=== PATIENT | male | born 1980 | race Caucasian/White ===

== ENCOUNTER 2021-06-23 08:16 | Outpatient (CLI) | payer OTHER ==
[2021-06-23 09:21] VITALS: BP 123/74
--- NOTE | 2021-06-23 09:21 | SLEEP CARE CONSULTATION ---
Information from patient questionnaire entered by Kayla Tate MA. I have reviewed and concur with the information entered by Kayla Tate MA. This document represents the service I personally performed and the decisions made by me, Magali Napoles ARNP. History of Present Illness Service Date and Time: 06/23/2021 0816 Reason for Visit: New patient (ONSET04/2012, NO PRIORS,) Chief Complaint: reports: Unrefreshed sleep (he feels awake but tired and not as much energy), Snoring (loud and irregular), Excessive daytime sleepiness, Fatigue, Frequent awakenings at night Date of Onset: 2 YEARS- 5 years Usual bedtime: 930 PM Time it takes to fall asleep: 15 MIN -1 HOUR Snores at night: Yes Observed to quit breathing while asleep: No Sleeps alone due to snoring: No Number of times waking at night: 2-3 Reasons for waking at night: reports: Snoring, Bathroom, Other (unknown reasons). denies: Choking, Gasping for air Toss, Turn, or Twitch while sleeping: Yes (some nights) Recalls having dreams: No (every now and then) Usually gets out of bed at: 0520 Feels refreshed in the morning: No Morning headache: Yes (1-2 a month) Sleepy or fatigued during the day: Yes (dozing off during day during movies or quiet moments) Ever fallen asleep while driving: No Takes day naps: No Dreams during day naps: No Prior sleep studies: No Additional HPI information: I had the pleasure of seeing GUY SMALL today regarding the possibility of him having a sleep disorder. His current complaints are excessive daytime sleepiness, fatigue, frequent night awakenings, snoring and unrefreshed sleep. He has been snoring for a long time but states in the last two years his daytime fatigue symptoms have been increasing. He has more times that he is falling asleep when watching TV with his . He will get drowsy after driving for an hour or more. He has woke himself up snoring, frequent bathroom trips and for unknowns reasons. 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 Patient is and lives in [place]. Have you smoked in the past 12 months: No Cigarettes per day (20/pack): 20 Years of smokin Quit date: 2008 Smoking Pack Years: 6.0 Alcohol use: Yes Alcohol amount and frequency: 1-2 X WEEKLY Caffeine use: Yes Caffeine amount and frequency: 1 X DAILY Family History Family history of sleep disordered breathing: Yes Family Hx Sleep Apnea: Father: Snoring, Grandparent: Snoring Allergies and Home Medications Known drug allergies: No Drug allergies reviewed: Yes Home medication list reviewed: Yes Allergy and home medication list: Omeprazole Review of Systems Weight gain over past 5 years: 20 pounds Cardiovascular: denies: high blood pressure Gastrointestinal: reports: heartburn Neurological: denies: headaches, head trauma Psychiatric: denies: anxiety, depression Ear/Nose/Throat: reports: injury to nose, wisdom teeth removed. denies: tonsillectomy Endocrine: denies: thyroid disease Immunologic: denies: allergies to food or environment Physical Exam Vital signs obtained and entered by: CHESTER HAND Blood Pressure: 123/74 (RIGHT, PULSE 67, RESP 14,) Cuff size: wrist Heart Rate: 72 O2 Saturation: 97 (N95) Height: 5 ft 5.5 in Weight: 197 lb Body Mass Index: 32.3 BMI Classification: Obese Neck circumference: 15 (INCHES) Mouth and throat: normal Soft palate: long Hard palate: normal Uvula: normal, long Uvula visualization: 100% Mallampati Class I Tongue: normal in size Tonsils: 1+ Neck: normal w/o lymphadenopathy or thyromegaly Heart: regular rate and rhythm Lungs: clear bilaterally Impression and Plan 1. Suspected Obstructive Sleep Apnea-Hypopnea Syndrome, as suggested by a history of loud and irregular snoring, morning headache, frequent awakening during the night, unrefreshed sleep, and excessive daytime sleepiness. Narrow oropharynx and obesity are common predisposing factors for obstructive sleep apnea-hypopnea syndrome. I recommend proceeding to polysomnography to confirm the diagnosis and to assess severity. If the patient has significant sleep disordered breathing, a manual CPAP titration study will also be performed to find the optimal treatment pressure. I informed the patient of what the sleep studies involve and after some discussion, obtained agreement to proceed. The pathophysiology of obstructive sleep apnea-hypopnea syndrome was discussed with the patient and health risks of cardiovascular and cerebrovascular disease if not treated. Risks of drowsy driving discussed in detail and patient advised to avoid long distance driving and to machine assembler for puller over at the first sign of drowsiness. Patient agreed to plan. * Schedule polysomnography +- manual CPAP titration study and return in 1-2 weeks after the study to discuss results. * Avoid long distance driving or driving when feeling sleepy. * Avoid alcohol, sedative and muscle relaxant around bedtime. * Attempt to lose weight. * Review instructions provided by trained office staff on how to prepare for the sleep study. * Return for follow-up after sleep study completed. Counseling Topics: Weight loss health impact Visit Type: In Office Time Spent with Patient (minutes): 31 Provider Statement: I spent 100% of the Face to Face Visit with the patient with greater than 50% spent counseling the patient and coordination of care.
== END 2021-06-23 08:17 | disposition home or self-care (01) ==
LOC: SC 08:16
PROVIDERS: ATTEND Nurse Practitioner Family
DX: R06.83 Snoring (principal); R53.83 Other fatigue; G47.8 Other sleep disorders; E66.9 Obesity, unspecified; Z68.32 Body mass index [BMI] 32.0-32.9, adult; Z87.891 Personal history of nicotine dependence
CPT/HCPCS: 99203; 99212

== ENCOUNTER 2021-07-27 09:19 | Outpatient (CLI) | payer OTHER | END 2021-07-27 09:20 | disposition home or self-care (01) | LOC: SC 09:19 | PROVIDERS: ATTEND Nurse Practitioner Family | DX: G47.33 Obstructive sleep apnea (adult) (pediatric) (principal); R09.02 Hypoxemia | CPT/HCPCS: 95806 ==

== ENCOUNTER 2021-08-13 09:24 | Outpatient (CLI) | payer OTHER ==
[2021-08-13 10:12] VITALS: BP 127/73
--- NOTE | 2021-08-13 10:12 | SLEEP CARE CONSULTATION ---
Information from patient questionnaire entered by Kayla Tate MA. I have reviewed and concur with the information entered by Kayla Tate MA. This document represents the service I personally performed and the decisions made by , Magali Napoles ARNP. History of Present Illness Service Date and Time: 08/13/2021 0924 Initial [place] Sleepiness Scale score: 12 (2021) Current [place] Sleepiness Scale score: 19 (08/2021) Additional HPI information: GUY SMALL returns for follow up and results of the recently performed home sleep study. I explained the pathophysiology behind obstructive sleep apnea. We then spent quite a bit of time discussing different treatment options. For mild obstructive sleep apnea, surgery and oral appliance are alternatives to nasal CPAP therapy but in moderate or severe cases, nasal CPAP is the most effective and reliable treatment. I reviewed the impact of weight changes on sleep apnea and strongly recommended losing weight. After some discussion, the patient opted to go with the nasal CPAP therapy. Nasal autoCPAP set at 4-15 cmH20 will be ordered with rationale explained. A manual titration study will be ordered if unable to find optimal pressure with office adjustments. I explained how CPAP machine works and what to expect when using the machine. Using CPAP every night in order to get used to it was emphasized. Patient advised to put CPAP mask on before getting into bed so as not to fall asleep without CPAP. To assist acclimation to CPAP use, it could also be used for a short time during day while reading or watching TV. The patient was instructed to call the CPAP supplier to discuss any mechanical problem that may occur. If the mask given is uncomfortable or is difficult to keep on through the night even with adjustment, contact the CPAP supplier as many will replace with another mask style if notified before 30 days. If snoring or perceives is not getting enough air or too much air from the machine, notify this office. AASM patient education PAP tips reviewed and given to patient. Patient counseled not drink alcohol less than 4 hours before bedtime as it can increase snoring and apnea. Patient was cautioned about risks of drowsy driving until sleepiness symptoms resolve. Sleep Study - Results Type of Sleep Study: Home sleep study (F/U HOME STUDY, 07/27/2021 [facility],) Prior sleep studies: No Polysomnography/Home Sleep Study results: Physician Impression: The quality of the study is good. The length of the study is adequate (> 240 minutes). Please also see the tabulated and graphic data. 1. Obstructive Sleep Apnea-Hypopnea (ICD-10 G47.33), severe, with an AHI of 38.9/hr and joshua SaO2 of 84%. During the study, the patient had 182 apneas (182 obstructive, 0 central, 0 mixed) and 108 hypopneas. The patient only slept supine during this study (supine AHI was 39.0 and non-supine, 0.00). 2. Hypoxemia (ICD-10 R09.02), mild, with the lowest oxygen saturation of 84 % and 14.2 minutes with SaO2 under 90%. Baseline oxygen saturation was normal (Average oxygen saturation was 94%). Allergies and Home Medications Known drug allergies: No Drug allergies reviewed: Yes Home medication list reviewed: Yes (no changes) Review of Systems Review of systems same as previous: Yes (no changes) Physical Exam Vital signs obtained and entered by: CHESTER HAND Blood Pressure: 127/73 (RIGHT, PULSE 92, RESP 18, ) Cuff size: wrist Heart Rate: 95 O2 Saturation: 98 (N95) Height: 5 ft 5.5 in Weight: 191 lb (WITH CLOTHES AND BOOTS) Body Mass Index: 31.3 BMI Classification: Obese Impression and Plan 1. Obstructive Sleep Apnea-Hypopnea Syndrome, severe, with lowest oxygen saturation of 84%. Obviously this is the cause of the patients symptoms of unrefreshed sleep, and excessive daytime sleepiness. Positive pressure therapy could benefit gastric reflux. As mentioned above, the patient will be started on nasal autoCPAP therapy with pressure set at 4-15 cmH2O. A manual titration study will be completed if unable to find optimal treatment pressure with office adjustments. Compliance guidelines also reviewed. A copy of compliance guidelines will be given for reference at check out. Because the apnea is more severe supine, I instructed to avoid sleeping supine using pillow positioning until able to start CPAP use. 2. Hypoxemia, mild, with the lowest oxygen saturation of 84 % and 14.2 minutes with SaO2 under 90%. His baseline oxygen saturation was normal with an average oxygen saturation of 94%. * Nasal auto CPAP therapy, pressure at 4-15 cm H2O. * Attempt to lose weight. * Avoid alcohol consumption near bedtime. * Avoid supine sleep until using CPAP. * The patient is again cautioned about driving until sleepiness completely resolves. * Return one month after CPAP obtained. I will assess response to therapy and compliance at that time. Counseling Topics: Weight loss health impact Visit Type: In Office Time Spent with Patient (minutes): 23 Provider Statement: I spent 100% of the Face to Face Visit with the patient with greater than 50% spent counseling the patient and coordination of care.
== END 2021-08-13 09:25 | disposition home or self-care (01) ==
LOC: SC 09:24
PROVIDERS: ATTEND Nurse Practitioner Family
DX: G47.33 Obstructive sleep apnea (adult) (pediatric) (principal); E66.9 Obesity, unspecified; Z68.31 Body mass index [BMI] 31.0-31.9, adult
CPT/HCPCS: 99212; 99213

== ENCOUNTER 2021-10-26 12:38 | Outpatient (CLI) | payer OTHER ==
[2021-10-26 13:51] VITALS: BP 73/51
--- NOTE | 2021-10-26 13:51 | SLEEP CARE CONSULTATION ---
Information from patient questionnaire entered by Kayla Mathur MA. I have reviewed and concur with the information entered by Kayla Mathur MA. This document represents the service I personally performed and the decisions made by , Magali Napoles ARNP. History of Present Illness Service Date and Time: 10/26/2021 1238 Previous diagnosis: Severe, Obstructive Sleep Apnea-Hypopnea Syndrome AHI: 38.9 (in 2021) Reason for follow up: first compliance (RESMED, CHIRINOS 08/25/2021, STARTED CPAP 09/17/2021, ) Accompanied by: Spouse Equipment type: CPAP Equipment obtained from: Other ([facility]; getting supplies as needed) Mask style: Nasal Mask brand: Resmed (AirFit [id number], small cushion) Backup mask available: No (will keep old mask when replaced) Last cushion change: 2 weeks Prior sleep studies: No Type of Sleep Study: Home sleep study (F/U HOME STUDY, 07/27/2021 [facility],) HPI additional information: GUY SMALL was diagnosed to have severe, AHI 38.9, obstructive sleep apnea- hypopnea syndrome and returned with spouse today for CPAP therapy first compliance follow-up. Sleep Study - Results Type of Sleep Study: Home sleep study (F/U HOME STUDY, 07/27/2021 [facility],) Prior sleep studies: No CPAP Compliance Data - Data Reviewed with Patient Average duration of nightly device use: 7 HOURS 10 MINUTES Compliance rate %: 100 (09/25/2021-10/24/2021; 30/30 days) Current pressure setting (cmH2O): 4-15 (median 5.7, avg 7.6, max 8.7) Average residual AHI: 1.8 Central apnea: .1 Obstructive apnea: 1.5 Hypopnea: .2 Average large leak: .9 Subjective Patient concerns: reports: mask discomfort (improved with moving to new nasal cushion). denies: aerophagia, air blowing in eyes, mask leak noise, condensation in mask/hose, nasal congestion, dry mouth, nose, throat, epistaxis, other Observed to snore while using device: No Current pressure setting perceived as: too low (only at onset of night) On therapy, patient: reports: sleeping better, awakening more refreshed, being more awake and alert during the day, more rested overall. denies: drowsiness while driving Initial [place] Sleepiness Scale score: 12 (2021) Current [place] Sleepiness Scale score: 9 (10/26/2021) Allergies and Home Medications Known drug allergies: No Home medication list reviewed: Yes (no changes) Review of Systems Review of systems same as previous: Yes (no changes) Physical Exam Vital signs obtained and entered by: Kermit MATHUR CMA AAMW Blood Pressure: 73/51 (RESP 16, PULSE 66, X 2) Cuff size: wrist Heart Rate: 67 O2 Saturation: 98 Height: 5 ft 5.5 in Weight: 196 lb (CLOTHES) Weight change since last visit: LOSE - GYM Body Mass Index: 32.1 BMI Classification: Obese Impression and Plan 1. Obstructive Sleep Apnea-Hypopnea Syndrome, severe, with excellent treatment compliance and good apnea control. On CPAP therapy, the patient has better sleep quality and is more rested overall. Patient needs a MWT for his job in the [employer]. I will order this and follow up with him after the test. He is doing well with the CPAP but feels the pressure is too low at the beginning of the night. It is fine after a few minutes and through the night. I will increase his starting ramp pressure to 5 cmH2O to reduce night onset air hunger. The patients pressure will be changed to autoCPAP 6-9 cmH20 to reflect pressure being used. Patient advised to contact me if pressure change is uncomfortable so that it can be adjusted. Goals for apnea control discussed. Patient's apnea severity and rationale for treatment to reduce apnea, improve sleep quality and reduce cardiovascular and cerebrovascular events was reviewed. I also reviewed the benefit of consistent device use of CPAP for gastric reflux. 2. Obesity, unspecified. Currently patients BMI is 31.6. Obesity increases the risk of apnea, CPAP pressure requirements and overall health risks especially cardiovascular and diabetes. Thus patient is advised to lose weight. Weight loss can be done with reducing portion size, reducing refined foods and balancing content with vegetables, fruit and whole grain foods. In addition, patient enc ouraged to get regular exercise. The patient's CPAP pressure range should accommodate some weight loss. Symptoms to report for additional pressure adjustment discussed. * Change auto CPAP pressure to 6-9 cmH2O * MWT * Notify me if snoring with mask or feeling that the pressure is too much or too little * Attempt to lose weight * Call this office if any problems using CPAP * Return for follow up after MWT, or sooner if concerns arise Counseling Topics: Spare mask, Weight loss health impact Visit Type: In Office Other Participants: Spouse/Significant Other Time Spent with Patient (minutes): 21 Provider Statement: I spent 100% of the Face to Face Visit with the patient with greater than 50% spent counseling the patient and coordination of care.
== END 2021-10-26 12:39 | disposition home or self-care (01) ==
LOC: SC 12:38
PROVIDERS: ATTEND Nurse Practitioner Family
DX: G47.33 Obstructive sleep apnea (adult) (pediatric) (principal); E66.9 Obesity, unspecified; Z68.32 Body mass index [BMI] 32.0-32.9, adult
CPT/HCPCS: 99212; 99213

== ENCOUNTER 2021-12-08 10:43 | Outpatient (CLI) | payer OTHER ==
--- NOTE | 2021-12-08 19:55 | MRI Report ---
PROCEDURE: Hip LT W/O INDICATIONS: HIP PAIN TECHNIQUE: Noncontrast coronal T1 spin echo and STIR through the bony pelvis. Coronal and axial T2 fast spin ec ho with fat saturation, sagittal T1 spin echo, and oblique axial T2 fast spin echo with fat saturatio n through the hip. COMPARISON: None. FINDINGS: Image quality: Excellent. Bones and joints: Symmetric appearing mild bilateral hip joint osteoarthritic changes are seen with s uperior joint space narrowing and thinning of articulating cartilages. No intraosseous lesions or fr actures. No avascular necrosis of the femoral heads. The visualized lower lumbar spine appears norm ally aligned. Tendons: Distal left gluteus medius and minimus tendinosis at their insertions on greater trochanter is seen, without associated muscle atrophy. The iliopsoas tendon appears intact, without adjacent bu rsal fluid collections. Tendinosis involving hamstring tendon origins at ischial tuberosity is also n oted. Labrum and cartilage: There is signal abnormality involving superior anterior left hip labrum concern ing for focal superior anterior labral tear at 1 to 2:00 position. The alpha angle of the femur is wi thin normal limits at less than 55 degrees. Soft tissues: Visualized muscles demonstrate normal bulk and internal signal. The proximal sciatic neurovascular bundle appears normal adjacent to the hamstring tendons. No free pelvic fluid. Bladde r wall thickness is normal. Genitourinary structures and bowel loops appear normal where visualized. IMPRESSION: 1. Mild symmetric appearing bilateral hip joint osteoarthritis. No hip fracture or dislocation. No ev idence of avascular necrosis. 2. Distal left gluteus medius and minimus tendinosis. Tendinosis also noted involving origins of the hamstring tendons at the ischial tuberosity. 3. Suggestion of superior anterior left hip labral tear at 1 to 2:00 position. Reviewed by: Francisco Zuniga MD on 12/08/2021 7:54 PM PDT Approved by: Francisco Zuniga MD on 12/08/2021 7:54 PM PDT Station ID: [id number]
--- NOTE | 2021-12-08 19:58 | MRI Report ---
PROCEDURE: Hip RT W/O INDICATIONS: HIP PAIN TECHNIQUE: Noncontrast coronal T1 spin echo and STIR through the bony pelvis. Coronal and axial T2 fast spin ec ho with fat saturation, sagittal T1 spin echo, and oblique axial T2 fast spin echo with fat saturatio n through the hip. COMPARISON: None. FINDINGS: Image quality: Excellent. Bones and joints: Symmetric appearing mild bilateral hip joint osteoarthritic changes are seen with j oint space narrowing and subchondral sclerosis. No marrow edema. No intraosseous lesions or fracture s. No avascular necrosis of the femoral heads. The visualized lower lumbar spine appears normally a ligned. Tendons: The gluteus medius and minimus tendons appear intact, without associated muscle atrophy. T he iliopsoas tendon appears intact, without adjacent bursal fluid collections. The origin of the ham string tendon is intact at the ischial tuberosity. Labrum and cartilage: Subtle fraying of posterior superior right hip labrum is seen at 11 to 12:00 po sition. Cartilage surface of the femoral head appears thinned. The alpha angle of the femur is withi n normal limits at less than 55 degrees. Soft tissues: Visualized muscles demonstrate normal bulk and internal signal. The proximal sciatic neurovascular bundle appears normal adjacent to the hamstring tendons. No free pelvic fluid. Bladde r wall thickness is normal. Genitourinary structures and bowel loops appear normal where visualized. IMPRESSION: 1. Mild bilateral hip joint osteoarthritis. No marrow edema. No evidence of necrosis of femoral head. 2. Right hip muscles and tendons are normal in size and signal intensity. 3. Finding is concerning for subtle posterior superior labral tear at 11 to 12:00 position. Reviewed by: Francisco Zuniga MD on 12/08/2021 7:57 PM PDT Approved by: Francisco Zuniga MD on 12/08/2021 7:57 PM PDT Station ID: [id number]
== END 2021-12-08 10:44 | disposition home or self-care (01) ==
LOC: DI 10:43
DX: M16.0 Bilateral primary osteoarthritis of hip (principal); M67.952 Unspecified disorder of synovium and tendon, left thigh